=== PATIENT | female | born 1980 | race Caucasian/White ===

== ENCOUNTER 2025-06-26 08:45 | Day surgery (SDC) | payer OTHER, SELFPAY ==
[2025-06-26] VITALS (9 sets, daily range): BP systolic 98–133; BP diastolic 66–108; PULSE 61–74; RESP 14–18; TEMP 36.2–36.8; O2SAT 96–100; BMI 46.1
[2025-06-26 09:05] LABS: Internal QC Validated? YES +Cl - CLEAR BKGD; Pregnancy, Urine Negative Negative; Record Kit Lot#,Urine Preg 980607
[2025-06-26] MEDS: Lactated Ringers 1,000 ML 15 ML IV (09:17)
--- NOTE | 2025-06-26 09:18 | PRE.ANES_ITS ---
ASA Classification* ASA Classification ASA Classification: 3 Assessment & Plan Anesthesia* Anesthesia Assessment Anesthesia Assessment: Discussed sedation and/or anesthesia options, risks, benefits, and alternatives with patient/parents/legal guardian/POA. Questions invited. The patient/parents/legal guardian/POA seems to understand and agrees to proceed with anesthesia plan. Reviewed the physical assessment, medical history, allergy history and patient home medications list prior to surgery/procedure/anesthetic and documented any changes. Performed airway and anesthesia risk assessments. Anesthesia Type Anesthesia Type: MAC Anesthesia Focused Assessment* Temperature: 97.1 F Pulse Rate: 68 Blood Pressure: 112/73 Respiratory Rate: 18 Pulse Ox: 98 Airway Assessment Mouth opens: >3 cm Mallampati Score: II Labs Anesthesia Preop lab: CBC CHEMISTRY COAG Urine Test Negative Negative Today, 08:50 Pre-Assessment Diagnosis/Proposed Procedure Planned Operative Procedure(s): EGD Anesthesia History Anesthesia History - supervisor grounds: Anesthesia History - supervisor grounds Hx Hospitalization No 06/25/25 08:43 Any Problems With Anesthesia No 06/25/25 08:43 Cholinesterase deficiency No 06/25/25 08:43 You/Your Family Experience No 06/25/25 08:43 fever (hyperthermia) with Relationship Recent Exposure to Contagious No 06/26/25 09:07 Disease Does patient have nerve No 06/25/25 08:43 stimulator Patient instructed to have device shut off --Does patient have Pacemaker No 06/26/25 09:07 or ICD? When Was Last Pacemaker Check QUESTION #4 FULL TEXT: You/Your Family Experience fever (hyperthermia) with Anesthesia Last Oral Intake Last Oral intake: Last Oral Intake NPO since 23:45 06/26/25 09:07 Meds taken in AM with sips of No 06/26/25 09:07 water? Meds patient instructed to take am of surgery PONV PONV - supervisor grounds: PONV - supervisor grounds Female Yes 06/25/25 08:43 HX of Motion Sickness No 06/25/25 08:43 HX of N/V After Surgery No 06/25/25 08:43 Non-Smoker Yes 06/25/25 08:43 Duration of Surgery greater No 06/25/25 08:43 than 60 minutes Number of Risk Factors 2 06/25/25 08:43 PONV Score Moderate Risk 06/25/25 08:43 Height & Weight Height & Weight: Anesthesia: Height & Weight Height 5 ft 4 in 06/26/25 09:07 Weight: 122 kg 06/26/25 09:07 Body Mass Index (BMI) 46.1 06/26/25 09:07 Respiratory Assessment Respiratory Assessment - supervisor grounds: Respiratory Tract Infection Hx - supervisor grounds Hx Respiratory Tract Infection No 06/25/25 08:43 STOP Sleep Apnea STOP Sleep Apnea - supervisor grounds: STOP Sleep Apnea - supervisor grounds Hx Hypertension Yes: CONTROLLED WITH MED 06/25/25 08:43 Hx Sleep Apnea Yes 06/25/25 08:43 CPAP Yes 06/25/25 08:43 BIPAP No 06/25/25 08:43 Do you snore loudly (louder than talking or can be heard Do you often feel tired/ fatigued/ sleepy during daytime? Has anyone observed you stop breathing during sleep? STOP Results Positive 06/25/25 08:43 QUESTION #5 FULL TEXT : Do you snore loudly (louder than talking or can be heard through closed doors)? Tobacco Use History Tobacco Use History - supervisor grounds: Tobacco Use History - supervisor grounds Tobacco Use Smoking Status Former smoker 06/25/25 08:43 Hx Tobacco Use No 06/25/25 08:43 Years Smoking Packs Smoked per Day Smoking Cessation Date was No - quit smoking greater 06/25/25 08:43 within the last 15 years than 15 years ago Hx Smoking Cessation Date 08/27/16 06/25/25 08:43 Hx Smoking Cessation Counseling Hematologic Medial History Hematologic Hx - supervisor grounds: Hematologic Medical Hx - crayon sorting machine feeder Hx of Blood Transfusion No 06/25/25 08:43 Hx of Transfusion in last 3 No 06/25/25 08:43 Months Date of Last Transfusion (if within last 3 months) Ever experience any problems No 06/25/25 08:43 with transfusion(s)? Specify any problems Hx of Preganancy in last 3 No 06/25/25 08:43 Months Nurse Filling Out Transfusion VCHRISTIN 06/25/25 08:43 & Questions: Date: 06/25/25 06/25/25 08:43 Time: 08:45 06/25/25 08:43 Patient unable to answer at this time (ie. confused, unrespo /Reproduction History /Reproductive History - supervisor grounds: /Reproductive Hx- supervisor grounds Hx Now No 06/25/25 08:43 Gestational Age (in weeks): EDC: Hx Hx Para Hx Section SAB No 06/25/25 08:43 Active Medications Active Medications: Current Medications Generic Name Dose Route Start Last Admin Trade Name Freq PRN Reason Stop Dose Admin Lactated Ringer's 1,000 mls @ 15 mls/hr 06/26/25 09:00 06/26/25 09:17 IV 15 mls/hr .Q48H KRISTINA Administration PFSH Medical History Diabetes Wears glasses Hypothyroid Thyroid disease Arthritis Non-alcoholic cirrhosis Fatty liver High cholesterol Shortness of breath on exertion Former smoker CPAP (continuous positive airway pressure) dependence Sleep apnea Leg cramps History of stress test Hypertension Chest pain Hip dislocation, right Malignant tumor of kidney Webbed esophagus Liver disease, chronic Acute appendicitis Pelvic pain Obesity Depression Migraine Sacroiliitis, not elsewhere classified Lumbosacral spondylosis with myelopathy Sacroiliac inflammation Osteoarthritis Hip pain, right Allergic rhinitis Urge incontinence Home Medications Medication Instructions Recorded Last Taken Type albuterol sulfate 2.5 mg/3 mL 2.5 mg inhalation Q4-6H PRN 04/15/25 Unknown History (0.083 %) solution for nebulization shortness of breat h or wheezing albuterol sulfate 90 mcg/actuation 2 puff inhalation Q 4-6H PRN 04/15/25 Unknown History aerosol inhaler (Ventolin HFA) shortness of breath or wheezing atorvastatin 10 mg tablet (Lipitor) 10 mg PO QDAY 03/2806/24/25 History bupropion HCl 150 mg 24 hr tablet, 150 mg PO QAM 04/1506/24/25 History extended release (Wellbutrin XL) escitalopram oxalate 20 mg tablet 20 mg PO QDAY 06/25/25 History (Lexapro) furosemide 20 mg tablet (Lasix) 20 mg PO QDAY PRN chance a 04/15/25 Unknown History gabapentin 600 mg tablet 600 mg PO Q12H 04/15/25/ History ibuprofen 800 mg tablet 800 mg PO Q8H PRN pain 04/1506/22/25 History levothyroxine 75 mcg tablet 75 mcg PO QDAY 04/15/25 History (Synthroid) lisinopril 2.5 mg tablet 2.5 mg PO QDAY 04/15/2505/28 History nitroglycerin 0.4 mg sublingual 0.4 mg sublingual Q5M PRN chest 04/15/25 Unknown History tablet pain nystatin 100,000 unit/gram topical 1 applic topical QD AY PRN rash 04/15/25 Unknown History cream promethazine 25 mg tablet 25 mg PO Q8 PRN nausea and v omiting 04/15/25 Unknown History rizatriptan 10 mg disintegrating See Rx Instructions P O .COMPLEX 04/15/25 Unknown History tablet (Maxalt-MAGNETIC PROSPECTING OPERATOR) solifenacin 10 mg tablet 10 mg PO QDAY 04/15/2506/24 History cetirizine 10 mg tablet 10 mg PO QDAY PRN allergy sy mptoms 04/16/25 Unknown History dexlansoprazole 60 mg 60 mg PO QDAY #90 caps 04/16 Unknown Rx capsule,biphase delayed release (Dexilant) oxycodone 10 mg tablet 5 mg PO Q8H 04/16/25 5 History Allergy/AdvReac Type Severity Reaction Status Date / Time aloe vera (From Vagisil) AdvReac Severe burning Verified 06/26/25 09:04 pain benzocaine (From Vagisil) AdvReac Severe burning Verified 06/26/25 09:04 pain doxycycline AdvReac Severe Hives Verified 06/26/25 09:04 mineral oil (From Vagisil) AdvReac Severe burning Verified 06/26/25 09:04 pain resorcinol (From Vagisil) AdvReac Severe burning Verified 06/26/25 09:04 pain starch (From Vagisil) AdvReac Severe burning Verified 06/26/25 09:04 pain trimethobenzamide (From AdvReac Severe Swelling Verified 06/26/25 09:04 Tigan (with benzocaine)) vitamin E (d-alpha AdvReac Severe burning Verified 06/26/25 09:04 tocopherol) (From Vagisil) pain vitamins A and D (From AdvReac Severe burning Verified 06/26/25 09:04 Vagisil) pain adhesive tape AdvReac Intermediate Rash Verified 06/26/25 09:04 clarithromycin (From Biaxin) AdvReac Intermediate Vomiting Verified 06/26/25 09:04 mometasone furoate AdvReac Intermediate Shortness Verified 06/26/25 09:04 of breath latex AdvReac Mild irritation Verified 06/26/25 09:04 Family History Mother Anxiety Asthma Arthritis Depression Respiratory disease Mental disorder Diabetes Sister Anxiety Depression Mental disorder Diabetes Grandfather Colon cancer Myocardial infarction Father Heart disease Hypertension High cholesterol CVA (cerebral vascular accident) Surgical History History of esophagogastroduodenoscopy (EGD) History of colonoscopy History of bladder surgery History of foot surgery H/O removal of neck cyst H/O partial nephrectomy History of appendectomy H/O ankle fusion History of ankle surgery History of hip replacement History of nephrectomy Social History Smoking Status: Former smoker alcohol intake: never substance use type: does not use what type of physical activity do you participate in: none Review of Systems (Anesthesia) ROS Narrative System reviewed and no additional complaints, except as documented.
--- NOTE | 2025-06-26 09:30 | EGD_PTH ---
PATIENT: KADE LANCE LOC: EN U#:[id number] AGE/SX: 45/F ROOM: RE06/26/[address]: Dr. Luis Keller DO : 1980 BED: DIS: 06/26/2025 SPEC #: [id number] RECD: 06/26/25 13:28 STATUS: JOSY REScarlett #: [id number] HIRO: 06/26/25 09:[address]: Luis Keller DEPT: SURGICAL PATHOLOGY RECD BY: Chad Goldman ENTERED: 06/26/25 15:20 SP TYPE: EGD BIOPSY OT DR: Christel Omalley, CURRICULUM CONSULTANT-C Tissues: A - Esophagus, NOS B - Gastric mucous membrane C - Duodenum, NOS Procedures: Immunohistochemical Stains Surgery Specimen Level IV HEADER OPERATION: EGD with biopsies PRE-OP DIAGNOSIS: Abdominal pain TISSUE SUBMITTED: A- Distal esophagus biopsy, B- Gastric body biopsy, C- Duodenum biopsy MICROSCOPIC DIAGNOSIS A. Distal esophagus, biopsy: - Columnar mucosa negative for goblet cell metaplasia. - No squamous mucosa observed. B. Gastric body, biopsy: - Oxyntic mucosa with chronic inflammation. - IHC for H pylori is pending, to be reported in an addendum. C. Duodenum, biopsy: - Normal villous architecture with slight Intraepithelial lymphocytosis - see note. Note: This pattern of injury is etiologically nonspecific and the differential diagnosis includes sensitivity to gluten and non-gluten proteins, small intestinal bacterial overgrowth, stasis related changes, infection, protein calorie malnutrition, tropical sprue, and medication injury (NSAIDs, Olmesartan / Benicar, Mycophenolic acid, Idelalisib, for example). If celiac disease is a clinical concern, additional clinical studies, such as tTG-IgA, are recommended. MICROSCOPIC DESCRIPTION Slides are reviewed. GROSS DESCRIPTION A. Received in fixative is one container labeled with the patient's name and designated "Distal esophagus biopsy." The specimen consists of two irregular fragments of collins tissue that measure 0.3 and 0.4 cm. The specimen is totally submitted in one cassette. B. Received in fixative is one container labeled with the patient's name and designated "Gastric body biopsy." The specimen consists of two irregular fragments of collins tissue that measure 0.5 and 0.6 cm. The specimen is totally submitted in one cassette. C. Received in fixative is one container labeled with the patient's name and designated "Duodenum biopsy." The specimen consists of one irregular fragment of collins tissue that measures 0.7 cm. The specimen is totally submitted in one cassette. MD 06/26/2025 CPT:[id number] ADDENDUM ADDENDUM ADDENDUM ADDENDUM ADDENDUM ADDENDUM ADDENDUM ADDENDUM ADDENDUM ADDENDUM ADDENDUM ADDENDUM 07/14/2025 13:12 ADDENDUM 07/14/2025 13:12 ADDENDUM 07/14/2025 13:12 ADDENDUM 07/14/2025 13:12 ADDENDUM 07/14/2025 13:12 This addendum is to report the result of the IHC stain for H pylori on part B: B) IHC negative for H. pylori organisms. Slides are reviewed. All matched controls reacted appropriately. These tests were developed and their performance characteristics determined by [facility]. They may not have been cleared or approved by the U.S. Food and Drug Administration. The FDA has determined that such clearance or approval is not necessary. The above immunohistochemical markers and/or special stains have been reviewed by the Pathologist.
--- NOTE | 2025-06-26 10:20 | PCM.HP.STD ---
HPI - General General Date of Admission: 06/26/25 Date of Service: 06/26/25 Chief Complaint: Dysphagia and bloating HPI Narrative KADE LANCE, is a 45 F who presents [Chief Complaint: trouble swallowing Details: history of EGD with dilation "multiple times" reports her last dilation was about 2 years ago - dysphagia - upper esophagus - dilations have helped in the past - she was taxing Dexilant, discontinued due to lack of insurance coverage - she is currently taking Omeprazole OTC but does not feel this is very helpful - dysphagia with pills - IBU 800mg couple times a month - denies any EtOH - former smoker - denies any weight loss - reports her last colonoscopy was about 2 years ago - denies any polyps - Maternal GF with colon CA PFSH Medical History Diabetes Wears glasses Hypothyroid Thyroid disease Arthritis Non-alcoholic cirrhosis Fatty liver High cholesterol Shortness of breath on exertion Former smoker CPAP (continuous positive airway pressure) dependence Sleep apnea Leg cramps History of stress test Hypertension Chest pain Hip dislocation, right Malignant tumor of kidney Webbed esophagus Liver disease, chronic Acute appendicitis Pelvic pain Obesity Depression Migraine Sacroiliitis, not elsewhere classified Lumbosacral spondylosis with myelopathy Sacroiliac inflammation Osteoarthritis Hip pain, right Allergic rhinitis Urge incontinence Home Medications Medication Instructions Recorded Last Taken Type albuterol sulfate 2.5 mg/3 mL 2.5 mg inhalation Q4-6H PRN 04/15/25 Unknown History (0.083 %) solution for nebulization shortness of breath or wheezing albuterol sulfate 90 mcg/actuation 2 puff inhalation Q4-6H PRN 04/15/25 Unknown History aerosol inhaler (Ventolin HFA) shortness of breath or wheezing atorvastatin 10 mg tablet (Lipitor) 10 mg PO QDAY 04/15/25 06/24/25 History bupropion HCl 150 mg 24 hr tablet, 150 mg PO QAM 04/15/25 06/24/25 History extended release (Wellbutrin XL) escitalopram oxalate 20 mg tablet 20 mg PO QDAY 04/15/25 06/25/25 History (Lexapro) furosemide 20 mg tablet (Lasix) 20 mg PO QDAY PRN edema 04/15/25 Unknown History gabapentin 600 mg tablet 600 mg PO Q12H 04/15/25 06/25/25 History ibuprofen 800 mg tablet 800 mg PO Q8H PRN pain 04/15/25 06/22/25 History levothyroxine 75 mcg tablet 75 mcg PO QDAY 04/15/25 06/25/25 History (Synthroid) lisinopril 2.5 mg tablet 2.5 mg PO QDAY 04/15/25 06/24/25 History nitroglycerin 0.4 mg sublingual 0.4 mg sublingual Q5M PRN chest 04/15/25 Unknown History tablet pain nystatin 100,000 unit/gram topical 1 applic topical QDAY PRN rash 04/15/25 Unknown History cream promethazine 25 mg tablet 25 mg PO Q8 PRN nausea and vomiting 04/15/25 Unknown History rizatriptan 10 mg disintegrating See Rx Instructions PO .COMPLEX 04/15/25 Unknown History tablet (Maxalt-WEB SEARCH EVALUATOR) solifenacin 10 mg tablet 10 mg PO QDAY 04/15/25 06/24/25 History cetirizine 10 mg tablet 10 mg PO QDAY PRN allergy symptoms 04/16/25 Unknown History dexlansoprazole 60 mg 60 mg PO QDAY #90 caps 04/16/25 Unknown Rx capsule,biphase delayed release (Dexilant) oxycodone 10 mg tablet 5 mg PO Q8H 04/16/25 06/25/25 History Allergy/AdvReac Type Severity Reaction Status Date / Time aloe vera (From Vagisil) AdvReac Severe burning Verified 06/26/25 09:04 pain benzocaine (From Vagisil) AdvReac Severe burning Verified 06/26/25 09:04 pain doxycycline AdvReac Severe Hives Verified 06/26/25 09:04 mineral oil (From Vagisil) AdvReac Severe burning Verified 06/26/25 09:04 pain resorcinol (From Vagisil) AdvReac Severe burning Verified 06/26/25 09:04 pain starch (From Vagisil) AdvReac Severe burning Verified 06/26/25 09:04 pain trimethobenzamide (From AdvReac Severe Swelling Verified 06/26/25 09:04 Tigan (with benzocaine)) vitamin E (d-alpha AdvReac Severe burning Verified 06/26/25 09:04 tocopherol) (From Vagisil) pain vitamins A and D (From AdvReac Severe burning Verified 06/26/25 09:04 Vagisil) pain adhesive tape AdvReac Intermediate Rash Verified 06/26/25 09:04 clarithromycin (From Biaxin) AdvReac Intermediate Vomiting Verified 06/26/25 09:04 mometasone furoate AdvReac Intermediate Shortness Verified 06/26/25 09:04 of breath latex AdvReac Mild irritation Verified 06/26/25 09:04 Family History Mother Anxiety Asthma Arthritis Depression Respiratory disease Mental disorder Diabetes Sister Anxiety Depression Mental disorder Diabetes Grandfather Colon cancer Myocardial infarction Father Heart disease Hypertension High cholesterol CVA (cerebral vascular accident) Surgical History History of esophagogastroduodenoscopy (EGD) History of colonoscopy History of bladder surgery History of foot surgery H/O removal of neck cyst H/O partial nephrectomy History of appendectomy H/O ankle fusion History of ankle surgery History of hip replacement History of nephrectomy Social History Smoking Status: Former smoker alcohol intake: never substance use type: does not use what type of physical activity do you participate in: none ROS Constitutional Constitutional: Denies fatigue, fever(s), poor appetite, weight gain or weight loss Gastrointestinal Gastrointestinal: Denies belching, bloating, change in bowel habits, change in stool character, chewing difficulty, coffee ground emesis, constipation, cramping, diarrhea, dyspepsia, dysphagia, early satiety, excessive flatus, fecal incontinence, heartburn, hematemesis, hematochezia, hemorrhoids, loose stools, melena, nausea, odynophagia, rectal bleeding, tenesmus, vomiting or weight changes Vital Signs Vital Signs Vital Signs: 06/26/25 09:07 06/26/25 09:07 06/26/25 09:18 Temperature 97.1 F L 97.1 F L Temperature Source Temporal Pulse Rate 68 68 Respiratory Rate 18 18 Respiratory Pattern Normal Blood Pressure 112/73 112/73 Blood Pressure Mean 86 Blood Pressure Source Monitor Blood Pressure Position Semi-Fowlers Blood Pressure Location Left Arm Pulse Ox 98 98 Oxygen Delivery Method Room Air Weight Weight: 268 lb 15.423 oz Body Mass Index (BMI) 46.1 Physical Exam Const alert, oriented x3, no apparent distress and healthy appearing General Appearance: cooperative GI normal to inspection, nondistended, normoactive bowel sounds, soft to palpation, non-tender and non-distended Percussion: normal to percussion Rectal Exam: deferred Results Lab / Micro Data Labs: Laboratory Results - last 24 hr 06/26/25 08:50: Urine Test Negative 06/26/25 09:01: POC Glucose 118 H Assessment & Plan Assessment/Plan (1) Dysphagia: (2) GERD (gastroesophageal reflux disease): (3) Irritable bowel syndrome with constipation: PLAN: Assessment and Plan Assessment and Plan (1) GERD (gastroesophageal reflux disease): Status: Acute (2) Dysphagia: Status: Acute Medications: New dexlansoprazole (Dexilant) 60 mg PO QDAY 90 caps 1RF Discontinued omeprazole Discontinued Reason: Order Changed 20 mg PO QDAY Plan 44-year-old female with history of gastroesophageal reflux disease and previous esophageal stricture presenting with recurrent dysphagia and worsening GERD symptoms. The patient has been using omeprazole [id number] but reports lesser effectiveness compared to previously prescribed dexlansoprazole. The obstructions from stricture appear to have recurred, exacerbating difficulties with swallowing certain medication forms, specifically capsules, and warrant further endoscopic evaluation and management. The patient’s asthma, hypertension, hyperlipidemia, depression, and hypothyroidism are part of her complex medical history but are not the primary focus of today’s visit. She will resume Dexilant and schedule an EGD. Patient Instructions: Resume Dexilant 60mg daily EGD ]
--- NOTE | 2025-06-26 10:27 | OP.PROVAT_ITS ---
06/26/2025 Madeline Farias Re : Upper GI endoscopy procedure for Uma Pollard Dear Shahram This procedure was performed on Thursday, June 26, 2025. My impressions and recommendations are as follows: Impressions : - No gross lesions in the entire esophagus. - Z-line irregular, 39 cm from the incisors. - Gastroparesis. Biopsied. - Erythematous duodenopathy. Biopsied. Recommendations : - Discharge patient to home. - Resume previous diet. - Continue present medications. - Await pathology results. - Consider manometry My findings are described in the full procedure note, which is enclosed. If I can be of further assistance, please feel free to contact me at . Sincerely, Luis Keller, 06/26/2025 10:27:13 AM This report has been signed electronically.
--- NOTE | 2025-06-26 10:27 | OP.EGD_ITS ---
Patient Name: Uma Pollard Procedure Date: 06/26/2025 10:02 AM Date of : 1980 Age: 45 Procedure: Upper GI endoscopy Indications: Epigastric abdominal pain, Dysphagia, Failure to respond to medical treatment Providers: Luis Keller DO Medicines: Monitored Anesthesia Care Patient Profile: This is a 45 year old female. Refer to note in patient chart for documentation of history and physical. Patient has symptoms of chronic abdominal distention, chronic global abdominal pain, dysphagia with both liquids and solids, chronic dyspepsia and chronic heartburn. Complications: No immediate complications. Procedure: Pre-Anesthesia Assessment: - Prior to the procedure, a History and Physical was performed, and patient medications and allergies were reviewed. The patient is competent. The risks and benefits of the procedure and the sedation options and risks were discussed with the patient. All questions were answered and informed consent was obtained. Patient identification and proposed procedure were verified by the physician. Mental Status Examination: alert and oriented. Airway Examination: normal oropharyngeal airway and neck mobility. Respiratory Examination: clear to auscultation. CV Examination: normal. ASA Grade Assessment: II - A patient with mild systemic disease. After reviewing the risks and benefits, the patient was deemed in satisfactory condition to undergo the procedure. The anesthesia plan was to use monitored anesthesia care (MAC). Immediately prior to administration of medications, the patient was re-assessed for adequacy to receive sedatives. The heart rate, respiratory rate, oxygen saturations, blood pressure, adequacy of pulmonary ventilation, and response to care were monitored throughout the procedure. The physical status of the patient was re-assessed after the procedure. After obtaining informed consent, the endoscope was passed under direct vision. Throughout the procedure, the patient's blood pressure, pulse, and oxygen saturations were monitored continuously. The gastroscope was introduced through the mouth, and advanced to the third part of the duodenum. Small bowel enteroscopy was deemed necessary. The upper GI endoscopy was accomplished without difficulty. The patient tolerated the procedure well. Scope In: 10:13:04 AM Scope Out: 10:18:35 AM Total Procedure Duration Time 0 hours 5 minutes 31 seconds Findings: No gross lesions were noted in the entire esophagus. The Z-line was irregular and was found 39 cm from the incisors. Suspect gastroparesis due to absence of peristalsis and patient symptoms. Biopsies were taken with a cold forceps for histology. Verification of patient identification for the specimen was done. Estimated blood loss was minimal. Biopsies were taken with a cold forceps for Helicobacter pylori testing. Verification of patient identification for the specimen was done. Patchy mildly erythematous mucosa without active bleeding and with no stigmata of bleeding was found in the entire duodenum. Biopsies were taken with a cold forceps for histology. Verification of patient identification for the specimen was done. Estimated blood loss was minimal. Abnormal motility was noted in the esophagus. The cricopharyngeus was abnormal. There is a decrease in motility of the esophageal body. The distal esophagus/lower esophageal sphincter is spastic, but gives up passage to the endoscope. Impression: - No gross lesions in the entire esophagus. - Z-line irregular, 39 cm from the incisors. - Gastroparesis. Biopsied. - Erythematous duodenopathy. Biopsied. Recommendation: - Discharge patient to home. - Resume previous diet. - Continue present medications. - Await pathology results. - Consider manometry Procedure Code(s): --- Professional --- 37293, Small intestinal endoscopy, enteroscopy beyond second portion of duodenum, not including ileum; with biopsy, single or multiple CPT copyright 2021 [employer]. All rights reserved. The codes documented in this report are preliminary and upon convention services manager review may be revised to meet current compliance requirements. Luis Keller DO 06/26/2025 10:27:13 AM This report has been signed electronically. Number of Addenda: 0 Note Initiated On: 06/26/2025 10:02 AM
--- NOTE | 2025-06-26 10:29 | PCM.POST.ANE ---
Anesthesia: Postop Eval I Current Vital Signs Temperature: 98.3 F Pulse Rate: 68 Blood Pressure: 98/66 Respiratory Rate: 14 Pulse Ox: 96 Oxygen Delivery Method: Room Air Assessment Airway patent: Yes Spontaneous unlabored respirations: Yes Mental status: Awake and Calm nausea: Yes Vomiting: No Anesthesia Complication: Yes Anesthesia Complication Comment:: pr reports nausea in PACU, promethazine adm IV by anes. Fluid Hydration Crystalloid volume administer (ml): 400 Total IV fluid infused: 400 Progress Note Anesthesia document: Postop Eval 1 completed: Yes
--- NOTE | 2025-06-26 11:06 | PCM.POSTANE2 ---
Anesthesia Postop Eval I Sum Postop Eval Completion status Anesthesia document: Postop Eval 1 completed: Yes Anesthesia Postop Eval I Summary Anesthesia Postop Eval I Summary: Anesthesia Postop Eval I: Assessment Summary Airway patent Yes 06/26/25 10:31 [email or web address] Spontaneous unlabored Yes 06/26/25 10:31 [email or web address] respirations Mental status Awake,Calm 06/26/25 10:31 [email or web address] nausea Yes 06/26/25 10:31 [email or web address] Vomiting No 06/26/25 10:31 [email or web address] Anesthesia Postop Eval I: Fluid Summary Crystalloid volume administer 400 06/26/25 10:31 [email or web address] (ml) Colloids volume administered ( ml) Blood Product volume administered (ml) Total IV fluid infused 400 06/26/25 10:31 [email or web address] Anesthesia Postop Eval I: Summary Notes Anesthesia Complication Yes 06/26/25 10:31 [email or web address] Anesthesia Complication pr reports nausea 06/26/25 10:31 [email or web address] Comment: in PACU, promethazine adm IV by anes. Post-operative progress note Anesthesia: Postop Eval II Evaluation Mental status: Awake Pain Level: 0 nausea: No Vomiting: No
== END 2025-06-26 11:12 | disposition home or self-care (01) ==
LOC: EN 08:47 → AC 08:49
PROVIDERS: Anesthesiology; PCP Nurse Practitioner Family; Referring Provider Nurse Practitioner Family; Visit Provider Internal Medicine Gastroenterology
DX: R13.10 Dysphagia, unspecified (principal); E11.9 Type 2 diabetes mellitus without complications; K21.9 Gastro-esophageal reflux disease without esophagitis; K31.84 Gastroparesis; E78.00 Pure hypercholesterolemia, unspecified; Z80.0 Family history of malignant neoplasm of digestive organs; I10 Essential (primary) hypertension; Z87.891 Personal history of nicotine dependence; K58.1 Irritable bowel syndrome with constipation; G47.30 Sleep apnea, unspecified; Z99.89 Dependence on other enabling machines and devices; Z79.899 Other long term (current) drug therapy; F32.A Depression, unspecified; E03.9 Hypothyroidism, unspecified; Z79.890 Hormone replacement therapy; Z90.5 Acquired absence of kidney; Z90.49 Acquired absence of other specified parts of digestive tract; Z96.649 Presence of unspecified artificial hip joint; K22.89 Other specified disease of esophagus; K31.89 Other diseases of stomach and duodenum; K22.4 Dyskinesia of esophagus; K29.50 Unspecified chronic gastritis without bleeding
CPT/HCPCS: 43239; 81025; 82962; 88305; 88342; J2405